=== PATIENT | female | born 1945 | race African-American/Black ===

== ENCOUNTER 2020-11-14 22:41 | Emergency (ER) | payer OTHER ==
[~2020-11-14] VITALS: Ht 167.6 cm; Wt 92.1 kg
[2020-11-14 22:45] VITALS: BP 126/70
[2020-11-14] MEDS ORDERED: DICLOFENAC SOD100 G1 (22:51)
[2020-11-14] MEDS ORDERED: AMLODIPINE (22:51)
[2020-11-14] MEDS ORDERED: MINIVELLE1 EAC1 (22:52)
[2020-11-14] MEDS ORDERED: HYDROCHLOROTHIAZIDE (22:53)
[2020-11-14] MEDS ORDERED: VALSARTAN40 MG PO (22:54)
== END 2020-11-15 00:15 | disposition home or self-care (01) ==
LOC: ER 22:41
DX: S61.211A Laceration without foreign body of left index finger without damage to nail, initial encounter (principal); I10 Essential (primary) hypertension; Z90.710 Acquired absence of both cervix and uterus; Z79.899 Other long term (current) drug therapy; Z88.6 Allergy status to analgesic agent; W26.0XXA Contact with knife, initial encounter; Y93.89 Activity, other specified; Y92.89 Other specified places as the place of occurrence of the external cause; Y99.8 Other external cause status